=== PATIENT | male | born 1970 | race Two or more races ===

== ENCOUNTER 2016-09-22 12:39 | Emergency (ER) | payer OTHER ==
[~2016-09-22] VITALS: Ht 165.1 cm; Wt 68.0 kg
--- NOTE | ~2016-09-22 | CR211 ---
[facility] A Service of [facility] RADIOLOGY TEXT RESULTS PATIENT: DAVID STRINGER LOCATION: SED : 70 UNIT #: [id number] AGE: [address]: HENRY HOLLIDAY SEX: M ORDER DR: [id number] [place] [id number] E MR#: [id number] Acc #: [id number] NAME: DAVID STRINGER : 1970 SEX: M STUDY DATE/TIME: 09/22/2016 13:37 UNIT: SED ROOM: STUDY DESCRIPTION: CR Ribs Uni 2 View W PA Ch Rt Attending Physician: (Res) Henry Holliday Ordering Physician: Staff Doctor Not On Primary Care Physician: No Primary Care Physician MEDICAL IMAGING REPORT This report is preliminary unless electronic signature is present. EXAM PA chest radiograph plus 3 views right ribs. INDICATIONS Shortness of breath and pain in the lung. This is located on the lower right side and has been present for a month. FINDINGS Heart size is within normal limits. No pneumothorax or pleural effusion is seen. There is some mild elevation of the right hemidiaphragm with some associated bronchovascular crowding. No aggressive osseous abnormalities are seen and no rib fractures are noted. IMPRESSION No acute findings. Patient does have some mild elevation of the right hemidiaphragm with some cystic bronchovascular crowding. Dictated by... Juanita Arthur M.D. THIS IS AN ELECTRONICALLY VERIFIED REPORT Juanita Arthur M.D. at 09/22/2016 6:08 PM AFF/skyler TD: 09/22/2016 17:34 JOB #: [id number] MEDICAL IMAGING REPORT Page 1 of 1
== END 2016-09-22 15:03 | disposition home or self-care (01) ==
LOC: SED 12:39
DX: S29.012A Strain of muscle and tendon of back wall of thorax, initial encounter (principal); X58.XXXA Exposure to other specified factors, initial encounter
CPT/HCPCS: 71101; 99283